=== PATIENT | male | born 1960 | race Caucasian/White ===

== ENCOUNTER → 2020-04-29 08:35 | Outpatient (CLI) | payer MEDICARE, SELFPAY ==
[2020-04-29 09:43] LABS: Hemoglobin A1C 6.4 % (4.0-6.0)
[2020-04-29 09:49] LABS: Chloride 96 mmol/L (98-107); Potassium 4.3 mmoL/L (3.5-5.1); Sodium 137 mmol/L (136-145)
[2020-04-29 09:52] LABS: Alanine Aminotransferase 30 U/L (12-78); Albumin Level 3.9 g/dl (3.5-5.0); Albumin/Globulin Ratio 1.1 (1.1-1.8); Alkaline Phosphatase 92 U/L (38-126); Anion Gap 13.3 mEq/L (5-15); Aspartate Amino Transferase 40 U/L (17-59); Bilirubin,Total 0.3 mg/dl (0.2-1.3); Blood Urea Nitrogen 40 mg/dl (9-20); Carbon Dioxide 32 mmol/L (22.0-30.0); Estimated Glomerular Filt Rate 56 ml/min (>60); GFR (African American) 68 ML/MIN (>60); Globulin 3.5 g/dL (1.3-3.2); Magnesium 1.7 mg/dl (1.6-2.3); Total Protein,Serum 7.4 g/dl (6.3-8.2)
[2020-04-29 09:53] LABS: Calcium 8.9 mg/dl (8.4-10.2); Glucose 118 mg/dl (74-100)
[2020-04-29 10:09] LABS: T4 (Thyroxine) 6.8 ug/dl (5.53-11.0)
[2020-04-29 13:44] LABS: INR 2.28 (0.9-1.1); Prothrombin Time 22.2 seconds (9.4-11.8)
== END ==
PROVIDERS: PCP Internal Medicine Cardiovascular Disease; Visit Provider Family Medicine
DX: E11.9 Type 2 diabetes mellitus without complications (principal); L03.90 Cellulitis, unspecified; I25.10 Atherosclerotic heart disease of native coronary artery without angina pectoris; I48.91 Unspecified atrial fibrillation; R00.2 Palpitations; F41.9 Anxiety disorder, unspecified; Z51.81 Encounter for therapeutic drug level monitoring; Z79.01 Long term (current) use of anticoagulants
CPT/HCPCS: 36415; 80053; 83036; 83735; 84436; 84443; 85610

== ENCOUNTER → 2020-07-04 14:17 | Outpatient (CLI) | payer MEDICARE, SELFPAY ==
[2020-07-04 14:22] LABS: MANUAL DIFFERENTIAL MANUAL DIFFERENTIAL (MANUAL DIFF)
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
--- NOTE | 2020-07-04 14:27 | XR_ITS ---
PROCEDURE: XR CHEST 2V CLINICAL HISTORY: copb COPD, cough, smoker COMPARISON: No exams were available for comparison FINDINGS: By valvular replacement. Pulmonary vessels are somewhat prominent. Normal heart size There are increased markings in the right mid and lower lung zone suspicious for underlying infiltrate. There is minimal blunting of the right CP angle. No acute bony abnormalities. IMPRESSION: Right lower lobe pneumonia Dictated by: Enrique Martinez MD 07/04/2020 16:00 Enrique Martinez MD in [facility] 07/04/2020 16:00
[2020-07-04 14:36] LABS: Chloride 99 mmol/L (98-107); Sodium 137 mmol/L (136-145)
[2020-07-04 14:37] LABS: Potassium 4.4 mmoL/L (3.5-5.1)
[2020-07-04 14:39] LABS: Alanine Aminotransferase 28 U/L (12-78); Alkaline Phosphatase 80 U/L (38-126); Anion Gap 10.4 mEq/L (5-15); Aspartate Amino Transferase 43 U/L (17-59); Bilirubin,Total 0.4 mg/dl (0.2-1.3); Blood Urea Nitrogen 28 mg/dl (9-20); Carbon Dioxide 32 mmol/L (22.0-30.0); Estimated Glomerular Filt Rate 62 ml/min (>60); GFR (African American) 74 ML/MIN (>60)
[2020-07-04 14:40] LABS: Albumin Level 4.5 g/dl (3.5-5.0); Albumin/Globulin Ratio 1.3 (1.1-1.8); Calcium 9.1 mg/dl (8.4-10.2); Globulin 3.6 g/dL (1.3-3.2); Glucose 144 mg/dl (74-100); Total Protein,Serum 8.1 g/dl (6.3-8.2)
[2020-07-04 14:48] LABS: Basophils # 0.1 K/mm3 (0-0.2); Basophils % 0.9 % (0.1-2.0); Eosinophils # 0.5 K/mm3 (0.0-0.4); Eosinophils % 4.5 % (0.1-12.0); Hematocrit 40.1 % (42.0-52.0); Hemoglobin 12.2 g/dL (14.1-18.0); Lymphocytes # 1.7 K/mm3 (0.7-4.5); Lymphocytes % 16.2 % (10-50); Mean Corpuscular HGB Conc 30.5 g/dL (31.8-35.4); Mean Corpuscular Hemoglobin 29.3 pg (27.0-31.2); Mean Corpuscular Volume 95.8 fl (80-94); Mean Platelet Volume 8.4 fl (7.4-10.4); Monocytes # 0.6 K/mm3 (0.1-1.0); Neutrophils # 7.5 K/mm3 (1.8-7.8); Neutrophils % 72.4 % (37.0-80.0); Platelet Count 212 K/mm3 (142-424); Red Blood Count 4.18 M/mm3 (4.60-6.20); Red Cell Distribution Width 16.6 % (11.5-17.5); White Blood Count 10.4 K/mm3 (4.8-10.8)
[2020-07-04 15:16] LABS: Prothrombin Time 35.6 seconds (9.4-11.8)
[2020-07-04 16:54] LABS: Eosinophils % 7 % (0-3); Lymphocytes % 12 % (10-50); Monocytes % 8 % (2-9); Neutrophils % 73 % (42-76); Platelet Estimate Normal; RBC Morphology Normal; Total Cells Counted 100
[2020-07-04 16:56] LABS: Prostate Specific Ag Screen 0.1 ng/ml (0.0-4.0)
== END ==
LOC: RAD 14:18
PROVIDERS: PCP Family Medicine; Visit Provider Otolaryngology
DX: I25.10 Atherosclerotic heart disease of native coronary artery without angina pectoris (principal); Z12.5 Encounter for screening for malignant neoplasm of prostate; E03.9 Hypothyroidism, unspecified; K11.3 Abscess of salivary gland; K11.5 Sialolithiasis; R06.02 Shortness of breath; Z51.81 Encounter for therapeutic drug level monitoring; Z79.01 Long term (current) use of anticoagulants
CPT/HCPCS: 70492; 71046; 80053; 84443; 85007; 85014; 85018; 85048; 85049; 85610; G0103; Q9967